=== PATIENT | male | born 1955 | race Caucasian/White ===

== ENCOUNTER 2025-03-17 11:57 | Emergency (ER) | payer OTHER, MEDICARE, SELFPAY ==
--- NOTE | 2025-03-17 12:03 | ED_ITS ---
<Statement entered by Leonardo Smith DO - 03/18/25 07:11> I was consulted by the LI, and we discussed the complexity of problems being addressed. I approved the treatment and management plan for this patient's care in the emergency department, thus performing a substantive portion of the medical decision making. Agree with LI note. I independently evaluated this patient. He describes performing an overhead recurrent supinating motion of the hand/forearm. During this motion he felt a pop/tear in the left upper extremity. Since that time he has had significant ecchymosis appearing on the extremity. On my examination he has a palpable distal biceps tendon. With resisted pronation and supination he has exquisite pain throughout the entirety of the biceps. I do have concern for a tear of one of the heads of the bicep. On further examination he does not have circumferential swelling of the entire extremity, he does not have any numbness and tingling distally in the extremity, and motor function is distally intact. We will have him follow-up with orthopedics for further evaluation with likely MRI. The patient was agreeable with this plan. Leonardo Smith DO Discharge Plan Disposition Patient Disposition: Home, Self-Care Condition: Good Referrals Follow up/Referrals: Charles Varner DO [Staff Physician, Orthopedics] - See instructions Paty Lowry [Primary Care Provider, Medical] - See instructions Activity Restrictions/Add. Instructions Additional Instructions/Restrictions: Please return to the emergency department with any worsening signs or symptoms. Please utilize ibuprofen and Tylenol as well as ice as needed for symptomatic relief. Please follow-up with orthopedic doctor in the upcoming days. Clinical Impressions Clinical Impression: Hematoma of left upper extremity, Biceps strain Instructions Patient Instructions: DI for Contusion Print Language Print Language: Lebanese Discharge ED Provider: Leonardo Smith General Adult HPI <YULIANA Rowell - Last Filed: 03/17/25 14:28> General Chief complaint: PAIN Stated complaint: AO/WC left are bruised Time Seen by Provider: 03/17/25 12:02 Mode of Arrival: Ambulatory Source of Information: Patient Limitations: No Limitations History of Present Illness HPI narrative: 69-year-old male presents the emergency department with left arm pain, hematoma, that he noticed yesterday, patient states that he was working and performing a supination and pronation 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, 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 , 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, 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[employer], when he felt some pain in his arm, patient had remote pop , in his left shoulder 1 week ago, patient states he has chronic shoulder problems at baseline, patient denies any fever chills chest pain shortness of breath, denies any neck pain, denies any radicular type symptomatology, patient moves extremity to command, no other injury or trauma per history, some numbness and tingling around his bicep , otherwise no other numbness tingling, no abdominal pain no chest pain no shortness of breath no fever chills, no nausea no vomiting no constipation no diarrhea no urinary symptomatology, patient is a non-smoker, denies alcohol or drug use, patient has no other relevant past medical history, takes no other medications daily at home. No history of anticoagulant use no history of clotting/bleeding disorder. Patient is utilize ibuprofen for symptomatic relief. Which has provided some relief. Initial triage vitals are grossly unremarkable. Please note that above description of symptoms, in this electronic medical record under categorization of recalled from ER triage doctor by RN are reflective of an initial nursing assessment, however, is not reflective of my full history and physical exam that was personally taken and clarified. Consequentially, this preceding description of symptoms, which may include the patient's categorized chief complaint in the EMR, do not reflect my personal clinical impression, and the ultimate description of history of present illness and patient stated complaints should be deferred to this section of the note. Unless stated otherwise or congruent with this section of the note, additional signs, symptoms, or incongruence should be interpreted as inaccurate with my clinical impression. Onset (ago): day(s) Related Data Allergies Allergy/AdvReac Type Severity Reaction Status Date / Time No Known Allergies Allergy Verified 03/17/25 12:15 [facility] <YULIANA Rowell - Last Filed: 03/17/25 14:28> [facility] Disclaimer: The information contained in this section may have been updated after the patient was seen, as this information can be updated by other users. Social History (Updated 03/17/25 @ 14:28 by YULIANA Rowell) Smoking Status: Never smoker alcohol intake: never current occupational status: other Travel in the last 8 weeks?: None Have you lived/traveled outside US in past 30 days?: No Contact w/someone who lives/traveled outside US past 30 days?: No Exposure to someone with infectious disease in past 14 days?: No Do you have a fever (greater than 100.4 F or 38 C)?: No Have you tested positive for COVID-19?: No Exposed to someone with COVID-19 in past 14 days?: No Do you have a sore throat?: No Do you have a cough?: No Do you have any weakness?: No Do you have any diarrhea?: No Are you experiencing any unusual bleeding?: No Do you have any muscle aches/pain?: No Do you have any abdominal pain?: No Are you experiencing loss of taste or smell?: No <YULIANA Rowell - Last Filed: 03/17/25 14:28> ROS Obtained: Yes All systems reviewed & no additional complaints except as documented Physical Exam <YULIANA Rowell - Last Filed: 03/17/25 14:28> General General appearance: alert and in no apparent distress Head Head exam: atraumatic and normocephalic Eye Eye exam: Present PERRL and EOMI ENT ENT exam: Present mucous membranes moist Neck Neck exam: Present normal inspection Chest Chest inspection: Present normal inspection and symmetric chest wall rise Respiratory Respiratory exam: Present normal lung sounds bilaterally; Absent respiratory distress Cardiovascular Cardiovascular exam: Present regular rate and normal rhythm Abdominal Exam Abdominal exam: Present soft; Absent tenderness Extremities Exam Extremities exam: Present normal inspection, full ROM, tenderness and other (There is a large hematoma spanning from the humeral region, to the left forearm region, patient moves extremities to command, neurovascular intact, some pain around the biceps tendon, and pain around patient's bicep, negative can sign, no pain palpation to the shoulder region.) Neurological Exam Neurological exam: Present alert and oriented X3 Psychiatric Psychiatric exam: Present normal affect Skin Skin exam: Present warm and dry Medical Decision Making <YULIANA Rowell - Last Filed: 03/17/25 14:28> Medical Records Medical records reviewed: Yes I reviewed the patient's medical records. Screening: Per USPSTF and CDC recommendations, given the prevalence of disease in our region, it is our hospital?s policy to screen for HIV and viral Hepatitis for all patients aged 18 and over and those with ongoing risk factors. Michael Inquiry Pt receiving controlled substance: No Michael was queried for this patient: No Vital Signs: 03/17/25 12:06 03/17/25 13:28 03/17/25 14:36 Temperature 97.6 F 98.1 F Temperature Source Temporal Artery Scan Oral Pulse Rate 62 85 Pulse Rate [Right Radial] 66 Respiratory Rate 15 15 Blood Pressure 167/86 H 140/84 Blood Pressure [Right Arm] 183/108 H Blood Pressure Mean [Right Arm] 133 Blood Pressure Source Automatic Cuff Blood Pressure Source [Right Arm] Automatic Cuff Blood Pressure Position Sitting Blood Pressure Position [Right Arm] Sitting 02 Sat by Pulse Oximetry 96 97 Oxygen Delivery Method Room Air Room Air Orders (Tests/Meds): ORDERS Category Date Time Status US extremity LT limited Stat Exams 03/17/25 12:17 Completed XR humerus LT Stat Exams 03/17/25 12:15 Completed XR shoulder LT min 2V Stat Exams 03/17/25 12:15 Completed Medical Decision Narrative: 69-year-old male presents emergency department with left arm pain, after performing a supination pronation movement history today, remote injury last week, differential diagnose include but not limited to, hematoma, bicep strain/sprain, biceps tear, upper extremity DVT, pseudoaneurysm, acute shoulder impingement syndrome, shoulder fracture, humerus fracture among others. I discussed this patient's case with the attending physician Dr. Smith he saw and examined the patient as well. Will obtain x-rays of the left humerus left shoulder, and obtain upper extremity duplex ultrasound for further evaluation/characterization. I reviewed the patient's left upper extremity ultrasound, along with corresponding radiologic report, there is a few soft tissue edema no discrete collection. I reviewed the patient's left humerus x-ray, left shoulder x-ray along the corresponding radiologic report, no acute abnormality is identified, there are degenerative changes that acute bony abnormality left shoulder. I discussed this findings with the patient bedside patient is in agreement with current treatment plan/discharge plan. Strict ED return precaution given. Patient most likely has bicep strain/sprain, need to follow-up with orthopedic doctor in the upcoming days, recommend rest ice ibuprofen Tylenol and other symptomatic relief medications. Patient voiced understanding. Strict return precaution given. <Leonardo Smith, - Last Filed: 03/18/25 07:09> Vital Signs: 03/17/25 12:06 03/17/25 13:28 03/17/25 14:36 Temperature 97.6 F 98.1 F Temperature Source Temporal Artery Scan Oral Pulse Rate 62 85 Pulse Rate [Right Radial] 66 Respiratory Rate 15 15 Blood Pressure 167/86 H 140/84 Blood Pressure [Right Arm] 183/108 H Blood Pressure Mean [Right Arm] 133 Blood Pressure Source Automatic Cuff Blood Pressure Source [Right Arm] Automatic Cuff Blood Pressure Position Sitting Blood Pressure Position [Right Arm] Sitting 02 Sat by Pulse Oximetry 96 97 Oxygen Delivery Method Room Air Room Air Orders (Tests/Meds): ORDERS Category Date Time Status US extremity LT limited Stat Exams 03/17/25 12:17 Completed XR humerus LT Stat Exams 03/17/25 12:15 Completed XR shoulder LT min 2V Stat Exams 03/17/25 12:15 Completed Medical Decision Narrative: 69-year-old male presents emergency department with left arm pain, after performing a supination pronation movement history today, remote injury last week, differential diagnose include but not limited to, hematoma, bicep strain/sprain, biceps tear, acute shoulder impingement syndrome, shoulder fracture, humerus fracture among others. I discussed this patient's case with the attending physician Dr. Smith he saw and examined the patient as well. Will obtain x-rays of the left humerus left shoulder, and obtain upper extremity duplex ultrasound for further evaluation/characterization. I reviewed the patient's left upper extremity ultrasound, along with corresponding radiologic report, there is a few soft tissue edema no discrete collection. I reviewed the patient's left humerus x-ray, left shoulder x-ray along the corresponding radiologic report, no acute abnormality is identified, there are degenerative changes that acute bony abnormality left shoulder. I discussed this findings with the patient bedside patient is in agreement with current treatment plan/discharge plan. Strict ED return precaution given. Patient most likely has bicep strain/sprain, need to follow-up with orthopedic doctor in the upcoming days, recommend rest ice ibuprofen Tylenol and other symptomatic relief medications. Patient voiced understanding. Strict return precaution given. Critical Care <YULIANA Rowell - Last Filed: 03/17/25 14:28> Critical Care Time Critical Care Time: No
[2025-03-17 12:06] VITALS: BP 183/108; PULSE 66; RESP 15; TEMP 36.4; O2SAT 96; BMI 29.5
--- NOTE | 2025-03-17 12:15 | XR_ITS ---
FINAL REPORT CLINICAL HISTORY: Left arm pain/shoulder pain and hematoma COMPARISON: None FINDINGS: LEFT SHOULDER 3 views of the left shoulder were obtained. There is no definite acute fracture or dislocation. Moderate hypertrophic changes at the acromioclavicular joint. Glenohumeral joint intact. Soft tissues are unremarkable. IMPRESSION: Degenerative changes without acute bony abnormality. Reviewed, Interpreted and Dictated by Alexy Sanders MD Transcribed by Kadie Penaloza Authenticated and [facility]
--- NOTE | 2025-03-17 12:15 | XR_ITS ---
FINAL REPORT CLINICAL HISTORY: Left arm pain/hematoma FINDINGS: Two views of the left humerus were obtained. There is no prior exam for comparison. There is no acute fracture or dislocation. The joint spaces are well preserved. There is no acute soft tissue abnormality. IMPRESSION: No acute abnormality identified. Reviewed, Interpreted and Dictated by Alexy Sanders MD Transcribed by Kadie Penlaoza Authenticated and [facility]
--- NOTE | 2025-03-17 12:17 | US_ITS ---
PROCEDURE INFORMATION: Exam: US Left Limited Joint or Other Non-Vascular Extremity Structure Exam date and time: 03/17/2025 12:25 PM Age: 69 years old Clinical indication: Pain; Upper arm; Left; Additional info: Left arm pain/hematoma TECHNIQUE: Imaging protocol: US left limited joint or other nonvascular extremity structure. Real-time ultrasound with image documentation. Exam focused on the area of clinical interest. COMPARISON: CR XR HUMERUS LT 03/17/2025 12:20 PM FINDINGS: Soft tissues: There is diffuse soft tissue edema. No discrete collection IMPRESSION: There is diffuse soft tissue edema. No discrete collection.
--- OUTSIDE RECORDS SUMMARY | 2025-03-17 13:09 | XMS_ITS | Clinical Summary ---
Author Organization [facility] Address [address] [place] [id number] Phone Care Team Providers Care Char Belt Operator Name Role Phone Paty Lowry MD Primary Care Provider [phone] Allergies Active Allergy Reactions Criticality Noted Date Comments Metoclopramide Other (See Comments) 01/21/2003 Sulfa (Sulfonamide Antibiotics) Nausea And Vomiting 06/06/2002 Medications meloxicam (MOBIC) 7.5 mg Oral TabletIndication s:Generalized arthritis Take 1 Tablet by mouth daily. 90 Tablet 3 09/17/2023 Active Active Problems Patient Care Coordination No te Formatting of this note migh t be different from the original. [facility] audit completed by Smita Prakash RN on 04/18/2020. yobany christopher 03/18/18 Problem Noted Date Diagnosed Date Benign essential hypertension 09/17/2023 Mixed hyperlipidemia 09/17/2023 Obesity 09/17/2023 Reduced libido 09/17/2023 Myalgia 10/20/2020 Collapsed lung 09/20/2020 Fracture of rib 09/20/2020 Rotator cuff tear, right 09/20/2020 History of back pain 05/20/2020 History of back surgery 05/20/2020 Vision loss of right eye 03/18/2018 Chronic right shoulder pain 03/18/2018 Impingement syndrome, shoulder, right 03/18/2018 Acute exacerbation of chronic low back pain 07/2017 Right lumbosacral radiculopathy 03/18/2018 Encounters Date Type Department Care Team Description 01/04/2025 Telephone [facility] [address] [place] [address] Paty Lowry MD Appointment Needed (AWE Due) from Last 3 Months Immunizations Immunization Administration Dates Next Due Td, Unspecified Formulation 12/15/2004, 4 Tdap 09/07/2020,04/08/2014 Surgical History Surgery Date Site/Laterality Comments BACK SURGERY Medical History Medical History Date Comments Renal disorder kidney stones Hypertension Social History Tobacco Use Types Packs/Day Years Used Date Smoking Tobacco: Never Smokeless Tobacco: Never Tobacco Cessation:Counseling Given: Not Answered Alcohol Use Standard Drinks/Week Comments Never 0 (1 standard drink = 0.6 oz pur e alcohol) AUDIT-C Answer Date Recorded Q1: How often do you have a drink containing alc ohol? Never 11/03/2020 Average Number of Drinks Not on file 021 Frequency of Binge Drinking Not on file 10/16 PHQ-2 Answer Date Recorded PHQ-2 Total Score 0 09/17/2023 Sex and Gender Information Value Date Recorded Sex Assigned at Not on file Legal Sex Male 1:19 PM EDT Gender Identity Not on file Sexual Orientation Not on file Last Filed Vital Signs Vital Sign Reading Time Taken Comments Blood Pressure 172/100 09/17/2023 2:00 PM EDT Pulse 69 05/02/2019 8:57 PM EST Temperature 36.7 C (98 F) 09/17/2023 2:00 PM EDT Respiratory Rate 16 05/02/2019 8:57 PM EST Oxygen Saturation 97% 05/02/2019 8:57 PM EST Inhaled Oxygen Concentration - - Weight 102.5 kg (226 lb) 09/17/2023 2:00 PM EDT Height 182.9 cm (6') 09/17/2023 2:00 PM EDT Body Mass Index 30.65 09/17/2023 2:00 PM EDT Plan of Treatment Health Maintenance Due Date Last Done Comments Cologuard 1998 Colon Cancer Screening 1998 Colonoscopy 1998 FIT 1998 Sigmoidoscopy 1998 Virtual Colonography 1998 Pneumococcal Vaccine 50+ (1 of 1 - PCV) 2003 Zoster (1 of 2) 2003 Annual Wellness Exam 09/16/2024 09/17/2023 COVID-19 Vaccine (3 - 2024- season) 2025 04/09/2021, 03/09/2021 Influenza Vaccine (#1) 2025 DTaP/TDaP/Td (3 - Td or Tdap) 09/07/2030 09/07/2020, 04/08/2014, 12/15/2004, Additional history exists Hepatitis C Screening Completed 03/24/2020 Hepatitis B Vaccine Aged Out No longe r eligible based on patient's age to complete this topic Meningococcal B Vaccine Aged Out No l onger eligible based on patient's age to complete this topic Goals Goal Patient Goal Type Associated Problems Recent Progress Patient-Stated? Author Blood Pressure < 140/90 Blood Pressure 172/100(09/16 2:00 PM EDT) No Johanna Velazquez MA Maintain a healthy diet, exercise regularly and maintain an ideal body weight General No Krystal Mccallum RMA Procedures Procedure Name Priority Date/Time Associated Diagnosis Comments HCV ANTIBODY SCREEN W/ REFLEX Routine 03/24/2020 2:09 PM EDT Need for hepatitis C screening test from Last 3 Months or Most Recently Relevant to Health Maintenance Results * HEPATITIS C ANTIBODY - SCREENING (03/24/2020 2:09 PM EDT) Hep C Ab Non-Reactiv e Non-Reacti ve 03/24/2020 7:58 PM EDT PREFERRED [facility] Blood VENOUS BLOOD / Unknown Venipuncture / Unknown 03/24/2020 2:09 PM EDT 03/24/2020 2:09 PM EDT us Paty Lowry MD HEMATOLOGY ORDERABLES Final Re sult [facility] , [place] [place] [address] from Last 3 Months or Most Recently Relevant to Health Maintenance Insurance MEDICARE PART A HB on file [facility] [employer] MEDICARE PART A HB on file [facility] [employer] Care Teams Char Belt Operator Relationship Specialty Start Date End Date Payt Lowry MD [address] [place] [address] PCP - General Family Medicine 03/18/18
--- OUTSIDE RECORDS SUMMARY | 2025-03-17 13:09 | XMS_ITS | Clinical Summary ---
Author Organization Healthcare Address [address] [place] [address] Care Team Providers Care Vehicle Maintenance Technician Name Role Phone Paty Lowry MD Primary Care Provider [phone] Allergies No known active allergies Medications ibuprofen 600 MG tablet Take 1 tablet (600 mg total) by mouth every 8 (eight) hours if needed for moderate pain. 21 tablet 1 12/06/2020 Active Active Problems Problem Noted Date Diagnosed Date Myalgia 10/20/2020 Collapsed lung 09/20/2020 Fracture of rib 09/20/2020 Rotator cuff tear, right 09/20/2020 Immunizations Immunization Administration Dates Next Due Tdap 09/07/2020 Family History Medical History Relation Name Comments Heart disease Father Relation Name Status Comments Father Social History Tobacco Use Types Packs/Day Years Used Date Smoking Tobacco: Never Smokeless Tobacco: Never Alcohol Use Standard Drinks/Week Comments No 0 (1 standard drink = 0.6 oz pure alcohol) Alcoholic Drinks/day: Denies alcohol consumption Sex and Gender Information Value Date Recorded Sex Assigned at Not on file Legal Sex Male 8:14 PM EDT Gender Identity Not on file Sexual Orientation Not on file Last Filed Vital Signs Vital Sign Reading Time Taken Comments Blood Pressure 158/90 12/07/2020 6:30 PM EDT Pulse 63 12/07/2020 6:30 PM EDT Temperature 36.2 C (97.2 F) 12/07/2020 5:27 PM EDT Respiratory Rate 21 12/07/2020 6:30 PM EDT Oxygen Saturation 94% 12/07/2020 6:30 PM EDT Inhaled Oxygen Concentration - - Weight 101 kg (222 lb 7.1 oz) 12/07/2020 11:00 A M EDT Height 182.9 cm (6') 12/07/2020 11:00 AM EDT Body Mass Index 30.17 12/07/2020 11:00 AM EDT Plan of Treatment Health Maintenance Due Date Last Done Comments [facility]-Depression Screening 1953 [facility]-Infant/Child/Adol SDOH Screenings 1953 [facility]- SDOH Screenings 1971 [facility]-Adult SDOH Screenings 1971 CT Colonography 1998 Colonoscopy 1998 FIT-DNA 1998 FIT 1998 FOBT 1998 Sigmoidoscopy 1998 [facility]-Colorectal Cancer Screening 1998 [facility]-Pneumococcal Vaccine: 50 + Years (1 of 1 - PCV) 2003 [facility]-Zoster Vaccines (1 of 2) 2003 [id number] Vaccine (1 - 20 24-25 season) 2025 [facility]-Influenza Vaccine (#1) 2025 [facility]-RSV Vaccine: 60+ Years o r (1 - 1-dose 75+ series) 2028 [facility]-DTaP,Tdap,and Td Vaccine s (2 - Td or Tdap) 09/07/2030 09/07/2020 HPV Vaccines Aged Out No longer eligi ble based on patient's age to complete this topic [facility]-HIB Vaccines Aged Out No longer e ligible based on patient's age to complete this topic [facility]-Hepatitis A Vaccines Aged Out No longer eligible based on patient's age to complete this topic [facility]-IPV Vaccines Aged Out No longer e ligible based on patient's age to complete this topic [facility]-Rotavirus Vaccines Aged Out No lo nger eligible based on patient's age to complete this topic Medical Devices Implanted Type Area Ribbon Hand Device Identifier Shelf Expiration Date Model / Serial / Lot [employer] Ultra Twinfix 5.5 - [id number] - [id number] Implanted:Qty : 1 on 12/07/2020 by Michael Harris MD at [facility] [employer] Right: Shoulder [employer] [facility] ([id number] 09/27/2025 [id number] / [id number] / Insurance MEDICARE [facility] Care Teams Vehicle Maintenance Technician Relationship Specialty Start Date End Date Paty Lowry MD [address] [place] [id number] PCP - General 11/15/20
[2025-03-17 13:28] VITALS: BP 167/86; PULSE 62; O2SAT 97
--- NOTE | 2025-03-17 14:12 | PC.NURSE ---
I called and spoke with Renae in radiology. She is going to fax me the prelim rad reports.
[2025-03-17 14:36] VITALS: BP 140/84; PULSE 85; RESP 15; TEMP 36.7; O2SAT 99
== END 2025-03-17 14:38 | disposition home or self-care (01) ==
PROVIDERS: Emergency Provider Student in an Organized Health Care Education/Training Program; PCP Family Medicine
DX: S46.212A Strain of muscle, fascia and tendon of other parts of biceps, left arm, initial encounter (principal); S40.022A Contusion of left upper arm, initial encounter; X50.0XXA Overexertion from strenuous movement or load, initial encounter
CPT/HCPCS: 73030; 73060; 76882; 99283; 99284